=== PATIENT | male | born 1960 | race Caucasian/White ===

== ENCOUNTER 2019-11-29 09:04 | Emergency (ER) | payer BC ==
--- NOTE | 2019-11-29 10:11 | RAD ---
EXAM: 3 views of the right middle finger HISTORY: Tuft fracture of the middle finger COMPARISON: None FINDINGS: There is a fracture of the distal aspect of the tuft of the distal phalanx of the middle fi nger. Moderate overlying soft tissue swelling is seen. No degenerative changes are present. No radiopaque foreign body is seen. IMPRESSION: Tuft fracture of the distal phalanx
== END 2019-11-29 11:03 | disposition home or self-care (01) ==
LOC: ERS 09:04
DX: S62.632A Displaced fracture of distal phalanx of right middle finger, initial encounter for closed fracture (principal); I10 Essential (primary) hypertension; Z79.899 Other long term (current) drug therapy; W22.8XXA Striking against or struck by other objects, initial encounter